=== PATIENT | male | born 1985 | race Caucasian/White ===

== ENCOUNTER 2023-10-28 14:10 | Emergency (ER) | payer OTHER ==
[~2023-10-28] VITALS: Ht 177.8 cm; Wt 77.1 kg
[2023-10-28 15:12] VITALS: BP 134/82; TEMP 98.3; O2SAT 100
[2023-10-28] MEDS ORDERED: TDAP [DIPH/PERTUSSIS/TET] 0.5 ML VIAL IM ONE (16:07)
[2023-10-28] MEDS ORDERED: BACI/NEOM/POLY B OINT PKT 1 UDPKT PACKET ONE (16:07)
[2023-10-28] MEDS ORDERED: AMOX-430 PO (16:20)
[2023-10-28] MEDS: TDAP [DIPH/PERTUSSIS/TET] 0.5 ML VIAL IM ONE (16:40)
[2023-10-28] MEDS: BACI/NEOM/POLY B OINT PKT 1 UDPKT PACKET TP ONE (16:40)
== END 2023-10-28 17:36 | disposition home or self-care (01) ==
LOC: ER 14:14
DX: S60.812A Abrasion of left wrist, initial encounter (principal); W55.03XA Scratched by cat, initial encounter; Y93.89 Activity, other specified; Y92.89 Other specified places as the place of occurrence of the external cause; Y99.8 Other external cause status
CPT/HCPCS: 90715

== ENCOUNTER 2024-10-08 09:35 | Emergency (ER) | payer OTHER ==
[~2024-10-08] VITALS: Ht 177.8 cm; Wt 74.8 kg
[~2024-10-08 09:35] MED LIST: AMOX-430 PO
[2024-10-08 09:40] VITALS: BP 135/67; TEMP 97.9; O2SAT 98
[2024-10-08] MEDS ORDERED: CIPR5DRO18 EACHEYE (10:43)
== END 2024-10-08 10:56 | disposition home or self-care (01) ==
LOC: ER 09:41
DX: H10.89 Other conjunctivitis (principal); N50.3 Cyst of epididymis; Z79.899 Other long term (current) drug therapy
CPT/HCPCS: 76870-TC